=== PATIENT | female | born 1960 | race African-American/Black ===

== ENCOUNTER 2023-06-01 05:13 | Emergency (ER) | payer MEDICAID, OTHER ==
[~2023-06-01] VITALS: Ht 172.7 cm; Wt 147.4 kg
[2023-06-01 05:19] VITALS: O2SAT 97
[2023-06-01 05:50] VITALS: TEMP 98.3
[2023-06-01 06:01] LABS: BASOPHILS % 0.4 % (0.0-2.0); EOSINOPHILS % 0.2 % (0.0-5.0); HEMATOCRIT. 42.4 % (36.0-48.0); HEMOGLOBIN. 13.8 g/dL (12.0-16.0); LYMPHOCYTES % 12.2 % (20.0-50.0); MEAN CORPUSCULAR HEMOGLOBIN 32.2 pg (28.0-32.0); MEAN CORPUSCULAR HGB CONC 32.6 g/dL (31.0-37.0); MEAN CORPUSCULAR VOLUME 98.9 fL (81.0-99.0); MONOCYTES % 6.9 % (2.0-8.0); NEUTROPHILS % 80.3 % (40.0-76.0); PLATELET 331 x1000/uL (130-400); RED BLOOD CELL COUNT 4.29 mill/uL (4.2-5.4); RED CELL DISTRIBUTION WIDTH 14.5 % (11.6-14.6); WHITE BLOOD COUNT 14.7 x1000/uL (4.5-11.0)
[2023-06-01 06:18] LABS: ALANINE AMINOTRANSFERASE 17 IU/L (10-49); ALBUMIN 4.3 g/dL (3.2-4.8); ASPARTATE AMINOTRANSFERASE 30 IU/L (<34); BILIRUBIN TOTAL 0.3 mg/dL (0.1-1.0); CALCIUM 9.4 mg/dL (8.7-10.4); CARBON DIOXIDE 26 mEq/L (21-32); CHLORIDE 101 mEq/L (98-107); CREATININE 0.8 mg/dL (0.6-1.0); GLUCOSE 163 mg/dL (70-105); PROTEIN TOTAL 8.1 g/dL (6.0-8.3); SODIUM 139 mEq/L (136-145); TROPONIN I HIGH SENSITIVITY 15 ng/L (3.0-34); UREA NITROGEN BLOOD 13 mg/dL (9-23)
[2023-06-01 06:27] LABS: ETHANOL BLOOD < 10 mg/dL (<10); POTASSIUM 2.7 mEq/L (3.5-5.1)
[2023-06-01] MEDS ORDERED: IOHEXOL-350 100 ML BOTTLE ONE (06:31)
[2023-06-01] MEDS ORDERED: HYDRALAZINE 20MG/ML VIAL IV ONE (06:45)
[2023-06-01 07:34] VITALS: BP 164/85; PULSE 70; RESP 19
== END 2023-06-01 07:40 | disposition short-term general hospital (02) ==
LOC: ER 05:13
DX: I60.9 Nontraumatic subarachnoid hemorrhage, unspecified (principal)
CPT/HCPCS: 80053; 80320; 85025; 84484; 36415; 71045; 70496; 70498; 70450; 96374; 99291; Q9967; J0360; G0480